=== PATIENT | female | born 1935 | race Caucasian/White ===

== ENCOUNTER 2020-09-15 13:36 | Emergency (ER) | payer MEDICARE ==
[~2020-09-15] VITALS: Ht 157.5 cm; Wt 43.2 kg
[2020-09-15] MEDS ORDERED: ketorolac trometh. 30mg/ml inj. IM ONE (15:55)
[2020-09-15 16:04] VITALS: BP 161/87
--- NOTE | 2020-09-15 16:07 | NUR ---
PA INFORMED OF PERSISTENT PAIN
--- NOTE | 2020-09-15 17:10 | NUR ---
TC TO FAMILY MEMBER (SON) TO INFORM OF DC STATUS. FAMILY WILL CALL WHEN THEY ARRIVE IN THE PARKING LOT.
== END 2020-09-15 17:29 | disposition home or self-care (01) ==
LOC: ER 13:39
DX: M25.551 Pain in right hip (principal); M25.552 Pain in left hip
CPT/HCPCS: 72170; 96372; 99284; J1885; 99283